=== PATIENT | male | born 1985 | race Caucasian/White ===

== ENCOUNTER → 2023-12-21 17:06 | Outpatient (REF) | payer BC, SELFPAY | LOC: RAD 17:06 | PROVIDERS: ATTENDING PHYSICIAN Family Medicine | DX: R59.0 Localized enlarged lymph nodes (principal) | CPT/HCPCS: 73200 ==

== ENCOUNTER → 2024-02-15 13:10 | Outpatient (REF) | payer BC, SELFPAY | LOC: RSP 13:10 | PROVIDERS: ATTENDING PHYSICIAN Family Medicine | DX: R93.89 Abnormal findings on diagnostic imaging of other specified body structures (principal); Z87.891 Personal history of nicotine dependence | CPT/HCPCS: 76882; 94010 ==